=== PATIENT | male | born 1960 | race Caucasian/White ===

== ENCOUNTER 2017-10-31 06:33 | Day surgery (SDC) | payer BC, SELFPAY ==
[2017-10-22 15:28] VITALS: BMI 34.2
[2017-10-31] VITALS (7 sets, daily range): BP systolic 83–116; BP diastolic 34–72; PULSE 48–86; RESP 12–16; TEMP 36.3–36.4; O2SAT 92–98; BMI 33.1
[2017-10-31] MEDS: LACTATED RINGERS 1,000 ML 21 ML IV ×2 (07:31→09:27)
--- NOTE | 2017-10-31 07:40 | PM.PREOP ---
Pre-operative Note Interval Note Pre-op Check: History & Physical Reviewed by Physician and Exam Performed
[2017-10-31] MEDS: CEFAZOLIN 2 GM/100 ML FROZ.PIGGY IV (08:00)
[2017-10-31] MEDS: BUPIVACAINE 0.5% (PF) 30 ML VIAL INJ (09:02)
--- NOTE | 2017-10-31 10:03 | PM.OP.1 ---
Operative Date/Time/Diagnoses - Date of procedure: 10/31/17 Time of procedure: 10:00 Pre-op diagnosis: Umbilical hernia and right inguinal hernia both reducible without strangulation or incarceration. Post-op diagnosis: same (The inguinal hernia was a direct inguinal hernia) Procedure & Clinicians Procedure: Repair of umbilical hernia with underlay of mesh. Repair of right inguinal hernia with plug and patch technique. Same procedure as scheduled: Yes Indications: Symptomatic hernias Surgeon: Dionicio Slater Click Yes if Unassisted: Yes Anesthesia Type: General Operative Notes Findings: See postop Closure Type: primary Specimen(s): none sent Implants & Drains: Mesh 1.7 in diameter circular mesh at the umbilicus. Large plug and patch at the right inguinal location Estimated Blood Loss (mL): 15 Blood products transfused: none Procedure in detail: The patient was placed supine on the operating room table and underwent general LMA anesthesia. He was prepped and draped in the usual fashion. A transverse incision was made overlying the internal ring and carried down to the level of the external oblique. The external oblique was opened parallel with its fibers through the external ring. The cord structures were elevated. The cremaster was opened proximally and search made for an indirect sac.[the patient had a large lipoma of the cord and a large amount of preperitoneal fat medially but no indirect sac. I ligated the lipoma of the cord at the level of the deep epigastric vessels with the 3 0 Vicryl and removed the distal portion. The large amount of preperitoneal fat pushing through adjacent to the cord was reduced and a large plug placed in the defect. It was tacked into place with interrupted 0 Ethibond sutures.]. The floor was examined and was found to be somewhat weakened.. A patch was placed across the floor and tacked at the pubic tubercle, the posterior lamella of the anterior rectus sheath, the ilioinguinal ligament, and superior lateral to the cord. The opening was modified as necessary to prevent tight constriction of the cord. Sutures of 0 Tycron were used to secure the mesh. The external oblique was closed with a running 3 0 Polysorb. The subcu was closed with interrupted 3 0 Polysorb. The skin was closed with a running 4 0 Polysorb subcuticular stitch. Attention was then turned to the umbilicus. Local anesthetic was infiltrated and a curvilinear incision made at the infraumbilical fold. Was carried down the level of fascia. The fascial edge was cleared circumferentially. The sac was dissected off the overlying skin and reduced. The peritoneum was cleared back away from the edge of the fascial defect and and a 1.7 in diameter circular piece of mesh was placed in the preperitoneal space. Two interrupted 0 Tycron sutures were used to close the fascial defect. The 2 tails of the mesh were incorporated into the closure. The umbilicus was tacked down to the fascia and the subcu closed with 3 0 Polysorb. The skin was closed running 4 0 Polysorb. Both wounds had Steri-Strips and Mastisol applied. Dressings were applied, the patient was awakened, and the patient was taken to the recovery area in good condition. The right testicle was pulled down. Complications: none Condition: stable Disposition: PACU Plan for aftercare: Follow-up in about 2 weeks
[2017-10-31] MEDS: fentaNYL 100 MCG/2 ML INJ 50 MCG IV ×2 (10:15→10:21)
[2017-10-31] MEDS: OXYCODONE/ACETAMINOPHEN 5/325 TABLET 1 TAB PO (10:46)
== END 2017-10-31 11:10 | disposition home or self-care (01) ==
PROVIDERS: Visit Provider Specialist
PROC: (CPT 49505; principal; 2017-10-31 07:45)
PROC: (CPT 49505; 2017-10-31 07:45)
DX: K40.90 Unilateral inguinal hernia, without obstruction or gangrene, not specified as recurrent (principal); K42.9 Umbilical hernia without obstruction or gangrene; E11.9 Type 2 diabetes mellitus without complications; I10 Essential (primary) hypertension; E78.00 Pure hypercholesterolemia, unspecified; G47.33 Obstructive sleep apnea (adult) (pediatric); Z87.891 Personal history of nicotine dependence
CPT/HCPCS: 49505; 49585; C1781; J0690; J2405; J2704; J3010